=== PATIENT | male | born 1955 | race Caucasian/White ===

== ENCOUNTER 2020-10-08 21:20 | Emergency (ER) | payer OTHER, MEDICARE ==
[2020-10-08] MEDS ORDERED: DIPH/PERTUSS(ACELL)/TETANUS VAC/PF 0.5 ML SYR (>=10YO) IM ONE (21:28)
[2020-10-08] MEDS ORDERED: CEPHALEXIN 500 MG CAPSULE PO ONE (21:34)
--- NOTE | 2020-10-08 21:35 | ER Document Report ---
ED Extremity Problem, Upper - General Stated Complaint: RIGHT THUMB INJURY/ACTIVE BLEED Time Seen by Provider: 10/08/20 21:27 Notes: CHIEF COMPLAINT: Right thumb laceration HPI: 64-year-old male presenting for an avulsion of skin and tissue from the right thumb tonight. Patient was cutting tomatoes and slipped with a knife cutting the thumb. States his tetanus is not up-to-date denies other complaints. Patient is not on blood thinners ROS: See HPI - all other systems were reviewed and are otherwise negative Constitutional: no fever Integumentary: + rash Allergy: no hives Musculoskeletal: + extremity pain or swelling Neurological: no numbness/tingling, no weakness MEDICATIONS: I agree with the patient medications as charted by the RN. ALLERGIES: I agree with the allergies as charted by the RN. PAST MEDICAL HISTORY/PAST SURGICAL HISTORY: Reviewed and agree as charted by RN. SOCIAL HISTORY: Reviewed and agree as charted by RN. FAMILY HISTORY: No significant familial comorbid conditions directly related to patient complaint EXAM: Reviewed vital signs as charted by RN. CONSTITUTIONAL: Alert and oriented and responds appropriately to questions. Well-appearing; well-nourished HEAD: Normocephalic; atraumatic EYES: Conjunctivae clear, sclerae non-icteric ENT: normal nose; no rhinorrhea; moist mucous membranes NECK: Supple without meningismus CARD: symmetric distal pulses RESP: Normal chest excursion without splinting or tachypnea ABD/GI: non-distended BACK: The back appears normal EXT: Normal ROM in all joints; no cyanosis, no effusions, no edema SKIN: Normal color for age and race; warm; dry; good turgor; avulsion of tissue to the right thumb lateral aspect does not involve the nail does not cross the DIP joint space region. Oozing blood slightly. No visible bony injury. Able to fully flex and extend the thumb at the DIP joint space region NEURO: Moves all extremities equally; Motor and sensory function intact PSYCH: The patient's mood and manner are appropriate. Grooming and personal hygiene are appropriate. MDM: 64-year-old male with avulsion of skin and tissue from the volar pad of the right thumb. No visible bone exposure. Will place a quick clot dressing, pressure dressing for 24 hours, I will place patient on antibiotics. Follow-up orthopedics wound check Past Medical History - Social History Smoking Status: Unknown if Ever Smoked Family History: Reviewed & Not Pertinent Physical Exam - Vital signs Vitals: Temp Pulse Resp BP Pulse Ox 98.9 F 81 17 132/73 H 100 10/08/20 21:29 10/08/20 21:29 10/08/20 21:29 10/08/20 21:29 10/08/20 21:29 Course - Vital Signs Vital signs: Temp Pulse Resp BP Pulse Ox 98.9 F 81 17 132/73 H 100 10/08/20 21:29 10/08/20 21:29 10/08/20 21:29 10/08/20 21:29 10/08/20 21:29 Discharge - Discharge Clinical Impression: Laceration of thumb, right, complicated Qualifiers: Encounter type: initial encounter Qualified Code(s): S61.011A - Laceration without foreign body of right thumb without damage to nail, initial encounter Condition: Stable Disposition: HOME, SELF-CARE Additional Instructions: Take the medications as prescribed. Call the orthopedic clinic or your primary care provider for wound check this week. Leave the pressure dressing on for 24 hours then change the outside dressing daily until healed Prescriptions: Cephalexin Monohydrate [Keflex 500 mg Capsule] 500 mg PO Q6H 5 Days #20 capsule Diclofenac Sodium [Voltaren 50 Mg Tablet.] 50 mg PO BID #20 tablet. Referrals: JUAN DIEGO HUNTLEY JR, DO [ACTIVE PROVISIONAL STAFF] - Follow up as needed
[2020-10-08] MEDS ORDERED: HYDROCODONE/ACETAMINOPHEN 5-325 MG TABLET PO ONE (22:04)
[2020-10-08] MEDS ORDERED: HYDROCODONE/ACETAMINOPHEN 5-325 MG (6 TAB/ER DISP) PO PRN (22:04)
[2020-10-08 22:29] VITALS: BP 145/79
== END 2020-10-08 22:25 | disposition home or self-care (01) ==
LOC: ER 21:20
DX: S61.011A Laceration without foreign body of right thumb without damage to nail, initial encounter (principal); R21 Rash and other nonspecific skin eruption; W26.0XXA Contact with knife, initial encounter
CPT/HCPCS: 90471; 90715; 99283